=== PATIENT | male | born 1995 | race Caucasian/White ===

== ENCOUNTER 2019-08-18 03:36 | Emergency (ER) | payer MEDICAID ==
[~2019-08-18] VITALS: Ht 165.1 cm; Wt 158.8 kg
[2019-08-18 03:36] VITALS: BP_SYST 117
--- NOTE | 2019-08-18 03:36 | NUR ---
Pt BIB BLS, placed to ER bed 05, to gown. Pt AAOx3, Trach in place to RA. Per BLS, police was called to pts house r/t SI. Per BLS, pt had an argument with his girlfriend, then locked himself in a car and was attempting to remove his trach. Trach remains in place, no s/s trauma to site, respirations even and non-labored, VSS. Pt with flat affect, calm and cooperative demeanor, and currently denies SI/HI or A/V hallucinations.
--- NOTE | 2019-08-18 03:42 | NUR ---
Pt placed on 5150 hold per [facility] Dept. r/t pt being a danger to self. Per [employer] senior officer, pt stated that he wanted to kill himself to [employer] senior officer and to his girlfriend and attempted to pull his trach out.
--- NOTE | 2019-08-18 03:50 | NUR ---
Security at bedside to vicky gregg
--- NOTE | 2019-08-18 03:58 | NUR ---
Patient placed on suicide precautions. Patient placed in room within close proximity to nurses' station for closer observation and monitoring. All clothing removed, placed in hospital gown. Metal detector wand used to further screen patient of any potential hazardous belongings. All belongings inventoried, placed in bags and removed from room. Cabinets locked. BP and pulse oximeter cords, and athletic monitor leads removed.
--- NOTE | 2019-08-18 04:04 | NUR ---
RT at bedside for ABG.
--- NOTE | 2019-08-18 04:05 | NUR ---
X-ray at bedside.
--- NOTE | 2019-08-18 04:20 | NUR ---
Primary Special Educator notified that pt is on a 5150 hold and the need for a 1:1 sitter.
--- NOTE | 2019-08-18 04:43 | NUR ---
Lab at bedside.
[2019-08-18 04:59] LABS: BASOPHILS # (AUTO) 0.2 K/uL (0.0-0.2); BASOPHILS % (AUTO) 1.5 % (0.0-2.0); EOSINOPHILS # (AUTO) 0.1 K/uL (0.0-0.4); HEMATOCRIT 44.6 % (36-54); HEMOGLOBIN 15.3 g/dL (14.0-18.0); LYMPHOCYTES # (AUTO) 2.5 K/uL (1.0-5.5); LYMPHOCYTES % (AUTO) 24.5 % (20.5-51.5); MEAN CORPUSCULAR HEMOGLOBIN 30 pg (27-31); MEAN CORPUSCULAR HGB CONC 34 % (32-36); MEAN CORPUSCULAR VOLUME 88 fL (79.0-98.0); MONOCYTES # (AUTO) 0.8 K/uL (0.0-1.0); MONOCYTES % (AUTO) 7.9 % (1.7-9.3); NEUTROPHILS # (AUTO) 6.7 K/uL (1.8-7.7); NEUTROPHILS % (AUTO) 65.1 % (40.0-70.0); PLATELET COUNT (AUTO) 379 K/uL (130-430); RED BLOOD CELL COUNT(AUTO) 5.05 MIL/uL (4.2-6.2); RED CELL DISTRIBUTION WIDTH 12.8 % (9.0-15.0); WHITE BLOOD COUNT (AUTO) 10.4 K/uL (4.8-10.8)
--- NOTE | 2019-08-18 05:00 | NUR ---
Pt resting quietly, even and non-labored respirations, NAD.
[2019-08-18 05:17] LABS: BARBITURATE, URINE NEGATIVE (NEG <=200); BENZODIAZEPINE, URINE NEGATIVE (NEG <=150); CANNABINOID, URINE POSITIVE (NEG <=50); COCAINE, URINE NEGATIVE (NEG <=150); METHAMPHETAMINES SCREEN,URINE NEGATIVE (NEG <=500); URINE AMPHETAMINE NEGATIVE (NEG <=500); URINE METHADONE NEGATIVE (NEG <=200)
[2019-08-18 05:18] LABS: OPIATE, URINE NEGATIVE (NEG <=100); PHENCYCLIDINE SCREEN,URINE NEGATIVE (NEG <=25); UR TRICYCLIC ANTIDEPRESSANTS NEGATIVE (NEG <=300); URINE OXYCODONE SCREEN NEGATIVE (NEG <=100); URINE PROPOXYPHENE SCREEN NEGATIVE (NEG <=300)
[2019-08-18 05:21] LABS: ANION GAP 10 (5-15); CALCIUM 8.7 mg/dL (8.4-11.0); CHLORIDE 104 mmol/L (98-107); CREATININE 0.74 mg/dL (0.55-1.30); GLUCOSE 140 mg/dL (70-99); POTASSIUM 3.3 mmol/L (3.5-5.1); SODIUM SERUM 138 mmol/L (136-145); UREA NITROGEN, BLOOD 8 mg/dL (8-21)
[2019-08-18 05:22] LABS: GFR AFRICAN AMERICAN 164 mL/min (>90)
[2019-08-18 05:27] LABS: ALANINE AMINOTRANSFERASE 40 U/L (12-78); ALBUMIN 3.5 g/dL (3.4-4.8); ALCOHOL, BLOOD 82 mg/dL (<10); ASPARTATE AMINOTRANSFERASE 22 U/L (10-37); TOTAL BILIRUBIN 0.2 mg/dL (0.0-1.0)
[2019-08-18 05:28] LABS: ACETAMINOPHEN < 1 ug/mL (1-30)
--- NOTE | 2019-08-18 06:00 | NUR ---
Pt resting quietly, even and non-labored respirations, NAD.
--- NOTE | 2019-08-18 06:57 | NUR ---
Water provided to pt. Pt calm and cooperative, denies SI/HI no A/V verbalized at this time.
--- NOTE | 2019-08-18 07:00 | NUR ---
pt is sleeping in bed. Eyes are closed. Pt is not in any distress.
--- NOTE | 2019-08-18 07:00 | NUR ---
Pt report given to DANIEL Castano.
[2019-08-18] MEDS ORDERED: POTASSIUM CHLORIDE 10 MEQ TAB.PRT.SR PO ONE (07:15)
--- NOTE | 2019-08-18 07:15 | NUR ---
Pt was provided w/ a cup of water.
--- NOTE | 2019-08-18 07:29 | NUR ---
PLACEMENT NOTE Faxed paper work to following facilities for placement: [facility] Ayanna Munoz
--- NOTE | 2019-08-18 07:48 | NUR ---
Saftey breakfast tray at bedside. pt is asleep at this time. will continue to monitor. no distress at this time. see observation record.
--- NOTE | 2019-08-18 08:15 | NUR ---
pt is sleeping in bed. Eyes are closed.
--- NOTE | 2019-08-18 08:30 | NUR ---
SLEEPING AT THIS TIME. NO CHANGES
--- NOTE | 2019-08-18 08:45 | NUR ---
pt is awake and asking for his .
--- NOTE | 2019-08-18 09:04 | NUR ---
RESTING QUIETLY, NO CHANGES
--- NOTE | 2019-08-18 09:11 | NUR ---
WANDING DONE BY SECURITY. STAFF AT BEDSIDE.
--- NOTE | 2019-08-18 09:30 | NUR ---
pt having breakfast in bed.
--- NOTE | 2019-08-18 09:45 | NUR ---
Pt is awake and sitting quietly in the gurney
--- NOTE | 2019-08-18 10:00 | NUR ---
pt is sleeping in bed. Eyes are closed
--- NOTE | 2019-08-18 10:15 | NUR ---
pt continues to sleep in bed. Eyes are closed
--- NOTE | 2019-08-18 10:30 | NUR ---
pt is sleeping in bed. Eyes are closed.
--- NOTE | 2019-08-18 10:45 | NUR ---
pt continues to sleep in bed. Eyes are closed.
--- NOTE | 2019-08-18 11:00 | NUR ---
pt is sleeping in bed. Eyes are closed.
--- NOTE | 2019-08-18 11:15 | NUR ---
pt conitnues to sleep. Eyes are closed
--- NOTE | 2019-08-18 11:30 | NUR ---
pt is sleeping in bed.
--- NOTE | 2019-08-18 11:45 | NUR ---
pt is awake and sitting quietly in bed.
--- NOTE | 2019-08-18 12:00 | NUR ---
pt is asking for his . Contacted the pt's , Susanna, who stated that she will come to the hospital.
--- NOTE | 2019-08-18 12:17 | NUR ---
Safety lunch tray at bedside.
--- NOTE | 2019-08-18 12:30 | NUR ---
pt is awake and having lunch.
--- NOTE | 2019-08-18 12:45 | NUR ---
pt is awake and resting in bed.
--- NOTE | 2019-08-18 13:00 | NUR ---
pt is sleeping in bed. Eyes are closed
--- NOTE | 2019-08-18 13:15 | NUR ---
pt continues to sleep in bed. Eyes are closed
--- NOTE | 2019-08-18 13:30 | NUR ---
pt is sleeping in bed. Eyes are closed
--- NOTE | 2019-08-18 14:00 | NUR ---
Pt is sitting up quietly in the gurney.
--- NOTE | 2019-08-18 14:15 | NUR ---
Patient is speaking w/ his girlfriend at the bedside.
--- NOTE | 2019-08-18 14:30 | NUR ---
pt's girlfriend is at the bedside.
--- NOTE | 2019-08-18 14:45 | NUR ---
pt is speaking w/ his girlfriend at the bedside.
--- NOTE | 2019-08-18 15:00 | NUR ---
pt is speaking w/ his girlfriend at the bedside.
--- NOTE | 2019-08-18 15:15 | NUR ---
Pt is awaking and speaking w/ his girlfriend at the bedside.
--- NOTE | 2019-08-18 15:30 | NUR ---
pt is awake and is speaking w/ his girlfriend.
--- NOTE | 2019-08-18 15:45 | NUR ---
pt is speaking w/ his girlfriend at the bedside.
--- NOTE | 2019-08-18 16:00 | NUR ---
pt is sleeping w/ his girlfriend at the bedside.
--- NOTE | 2019-08-18 16:15 | NUR ---
pt is sleeping w/ girlfriend at the bedside.
--- NOTE | 2019-08-18 16:30 | NUR ---
pt is sleeping w/ his girlfriend at the bedside.
--- NOTE | 2019-08-18 16:45 | NUR ---
pt is sleeping w/ his girlfriend at the bedside.
--- NOTE | 2019-08-18 17:00 | NUR ---
pt is sleeping w/ his girlfriend at the bedside.
--- NOTE | 2019-08-18 17:15 | NUR ---
pt continues to sleep w/ his girlfriend at the bedside
--- NOTE | 2019-08-18 17:30 | NUR ---
pt continues to sleep w/ his girlfriend at the bedside.
--- NOTE | 2019-08-18 17:45 | NUR ---
pt continues to sleep at the bedside. Eyes are closed.
--- NOTE | 2019-08-18 18:00 | NUR ---
PT is awake. Resting in the gurney
--- NOTE | 2019-08-18 18:15 | NUR ---
pt is resting quietly in bed
--- NOTE | 2019-08-18 18:30 | NUR ---
pt is resting quietly in bed.
--- NOTE | 2019-08-18 18:45 | NUR ---
pt is resting quielty in bed
--- NOTE | 2019-08-18 19:00 | NUR ---
pt is resting in bed. Care endorse to oncoming nurse
--- NOTE | 2019-08-18 19:35 | NUR ---
Security at bedside wanding patient.
[2019-08-18] MEDS ORDERED: ACETAMINOPHEN 325 MG TABLET PO ONE (19:45)
--- NOTE | 2019-08-18 20:08 | NUR ---
Patient resting comfortably in bed. No acute distress, will continue to monitor.
--- NOTE | 2019-08-18 21:14 | NUR ---
patient resting comfortably in bed. no acute distress. will continue to monitor.
--- NOTE | 2019-08-18 23:15 | NUR ---
pt appears sleeping
--- NOTE | 2019-08-18 23:36 | NUR ---
no change. Appears to be resting comfortably with significant other at his side.
--- NOTE | 2019-08-18 23:56 | NUR ---
Awake, OOB for drink of water and change of position. Denies complaints, states has no needs at this time. SO remains at beside. Recliner chair provided for SO for comfort.
--- NOTE | 2019-08-19 05:41 | NUR ---
ER at bedside examining patient.
[2019-08-19 06:03] VITALS: BP_SYST 141
--- NOTE | 2019-08-19 06:03 | NUR ---
Patient given written and verbal discharge instructions and verbalizes understanding. ER MD discussed with patient the results and treatment provided. Patient in stable condition. ID arm band removed. Rx of zero given. Patient educated on pain management and to follow up with PMD. Pain Scale 0/10. Opportunity for questions provided and answered. Medication side effect fact sheet provided.
== END 2019-08-19 06:03 | disposition home or self-care (01) ==
LOC: SED 03:36
DX: R45.851 Suicidal ideations (principal); Z88.0 Allergy status to penicillin
CPT/HCPCS: 36415; 36600; 71045; 80053; 80307; 82803; 85025; 93005; 99285; G0480; G0481; G0482